=== PATIENT | male | born 1975 | race Caucasian/White ===

== ENCOUNTER 2016-12-12 17:10 | Inpatient (IN) | payer BC ==
--- NOTE | ~2016-12-12 | DS ---
Discharge Summary [facility] [address] [place]. [address] NAME: RUTHIE QUINTANA PAGE : 75 STATUS : DIS IN PAT#: [id number] AGE: 41 ADM/REG DATE : 12/12/16 MR#: [id number] REPORT SERV DATE: 12/25/16 DICTATED BY: MILADYS CRAVEN III DATE: 12/24/16 REPORT STATUS : Draft TRANSCRIBED BY: FANY DATE: 12/24/16 Data Collection from hospitalization DISCHARGE DIAGNOSES: 1. Relapsed acute myeloblastic leukemia. 2. Anemia. 3. Asthma. CONSULTATIONS: None. PROCEDURES PERFORMED: None. MEDICATIONS: Zovirax 400 mg twice a day, Diflucan 400 mg daily, Dulera two puffs via inhaler daily as needed, Cortisporin Otic one drop four times a day, Bactrim DS one tablet three times a week, herbal supplements as instructed, and MD Monique/lidocaine 5 mL four times a day as needed. CONDITION AT DISCHARGE: Stable. DISPOSITION: The patient was discharged home on a regular diet with activities as instructed. He would follow up with me on 12/19/2016. HOSPITAL COURSE: This is a 41-year-old man who has relapsed acute myeloblastic leukemia. He has acute myeloid leukemia in remission. He continued to feel great. He had no new problems. He continues to work out regularly and says that he had an excellent energy level. The patient decided to undergo for reinduction with plans to proceed with transplant. He was admitted to the hospital at this time for further evaluation and treatment. Upon admission, fluconazole and Bactrim were started. He was going to begin FLAG-SINGH. On 12/14/2016, he was receiving day two of FLAG-SINGH. He had tolerated this well so far. No transfusion was needed for pancytopenia. Bactrim and proton pump inhibitor were be continued. He said he felt good. He had no nausea. He had no bleeding. White count was 2.3. On 12/15/2016, he had no new complaints. He had no problems. FLAG-SINGH continued as well as fluconazole and Bactrim. Discharge planning was performed. He continued to do well. On 12/17/2016, he had no new complaints. He was alert and cooperative. His lungs were clear. Discharge instructions were given. Due to his improved and stable condition, he was discharged home with the above-stated instructions. Information collected by: Felicia Kaba I submit the above information as my discharge summary. ELIOT/FANY Discharge Summary [facility] [address] [place]. [address] NAME: RUTHIE QUINTANA PAGE : 75 STATUS : DIS IN PAT#: [id number] AGE: 41 ADM/REG DATE : 12/12/16 MR#: [id number] REPORT SERV DATE: 12/25/16 DICTATED BY: MILADYS CRAVEN III DATE: 12/24/16 REPORT STATUS : Draft TRANSCRIBED BY: FANY DATE: 12/24/16 Miladys Craven III, M.D. / [id number] CC: Ayden Powers III, VICKY L
[~2016-12-12 17:10] MED LIST: BEN25 PO; DULERA 100 MCG/13 GM INH; DULERA 200 MCG/13 GM INH; FLUCON2 PO; LEVAQUIN750 MG PO; SELENIUM PO; VITAMIN D1000 UNI1 PO; ZOVIRAX400 MG PO
[2016-12-12] MEDS ORDERED: DULERA 100 MCG/13 GM INH (18:36)
[2016-12-12] MEDS ORDERED: HERBAL SUPPL (18:37)
[2016-12-12 18:53] LABS: HEMOGLOBIN 12.9 g/dL (13.6-17.8); MEAN CORPUSCULAR HEMOGLOB 32.3 pg (26.0-34.0); MEAN PLATELET VOLUME 8.6 fL (9.2-13.0); PLATELET COUNT 92 10/3/uL (150-400)
[2016-12-12 18:56] LABS: HEMATOCRIT 37.8 % (40.0-51.0); MANUAL DIFF YES %; MEAN CORPUS HGB CONC 34.1 g/dL (32.0-36.0); MEAN CORPUSCULAR VOLUME 94.5 fL (80-100); WHITE BLOOD CELLS 1.8 10/3/uL (4.5-10.5)
[2016-12-12 19:22] LABS: ALBUMIN 4.2 G/DL (3.5-5.0); BUN (BLOOD UREA NITROGEN) 14 MG/DL (6-23); CALCIUM, SERUM 8.8 MG/DL (8.5-10.4); CHLORIDE, SERUM 107 MMOL/L (96-112); CO2 (CARBON DIOXIDE) 26 MMOL/L (24-34); CREATININE 0.82 MG/DL (0.70-1.30); GFR AFRICAN AMERICAN 127 ML/MIN (>=60); GFR NON AFRICAN AMERICAN 110 ML/MIN (>=60); GLUCOSE, SERUM 122 MG/DL (60-99); SGOT(AST) 17 U/L (5-40); SGPT(ALT) 34 U/L (5-65); SODIUM, SERUM 141 MMOL/L (135-148); TOTAL PROTEIN 6.4 G/DL (6.0-8.5)
[2016-12-12 19:23] LABS: A/G RATIO 1.9 (0.7-1.9); ALKALINE PHOSPHATASE 54 U/L (45-117); GLOBULIN 2.2 G/DL (2.5-4.1); TOTAL BILIRUBIN 0.2 MG/DL (0-1.2)
[2016-12-12 20:23] LABS: BAND NEUTROPHILS 1 %; EOSINOPHILS 8 %; EOSINOPHILS ABSOLUTE (CALC) 0.14 10/3/uL (0.0-0.53); LYMPHOCYTES 40 %; LYMPHOCYTES ABSOLUTE (CALC) 0.72 10/3/uL (0.67-4.30); MONOCYTES 2 %; MONOCYTES ABSOLUTE (CALC) 0.04 10/3/uL (0.21-1.20); SEGMENTED NEUTROPHIL (0) 49 %; TOTAL NUCLEATED CELLS 100
[2016-12-12 20:37] LABS: PLATELET ESTIMATE DEC (ADEQUATE)
[2016-12-12 20:38] LABS: RBC MORPHOLOGY NORM (NORMAL)
[2016-12-13 05:42] LABS: HEMOGLOBIN 13.7 g/dL (13.6-17.8); MEAN CORPUS HGB CONC 34.3 g/dL (32.0-36.0); MEAN CORPUSCULAR VOLUME 96.4 fL (80-100); PLATELET COUNT 97 10/3/uL (150-400); RED CELL COUNT 4.15 10/6/uL (4.7-6.1)
[2016-12-13 05:44] LABS: MANUAL DIFF YES %; WHITE BLOOD CELLS 1.8 10/3/uL (4.5-10.5)
[2016-12-13 05:50] LABS: CALCIUM, SERUM 8.9 MG/DL (8.5-10.4); CHLORIDE, SERUM 111 MMOL/L (96-112); CO2 (CARBON DIOXIDE) 27 MMOL/L (24-34); CREATININE 0.93 MG/DL (0.70-1.30); GFR AFRICAN AMERICAN 118 ML/MIN (>=60); GFR NON AFRICAN AMERICAN 102 ML/MIN (>=60); POTASSIUM, SERUM 4.3 MMOL/L (3.5-5.3); SODIUM, SERUM 145 MMOL/L (135-148)
[2016-12-13 05:51] LABS: BUN (BLOOD UREA NITROGEN) 19 MG/DL (6-23); GLUCOSE, SERUM 91 MG/DL (60-99)
[2016-12-13 06:25] LABS: BAND NEUTROPHILS 2 %; EOSINOPHILS 10 %; EOSINOPHILS ABSOLUTE (CALC) 0.18 10/3/uL (0.0-0.53); LYMPHOCYTES 38 %; LYMPHOCYTES ABSOLUTE (CALC) 0.68 10/3/uL (0.67-4.30); MONOCYTES 4 %; MONOCYTES ABSOLUTE (CALC) 0.07 10/3/uL (0.21-1.20); NEUTROPHILS ABSOLUTE (CALC) 0.86 10/3/uL (2.02-8.40); PLATELET ESTIMATE DEC (ADEQUATE); RBC MORPHOLOGY NORM (NORMAL); SEGMENTED NEUTROPHIL (0) 46 %; TOTAL NUCLEATED CELLS 100
[2016-12-14 06:41] LABS: BASOPHILS 0 %; EOSINOPHILS 0.9 %; EOSINOPHILS ABSOLUTE 0.02 10/3/uL (0.0-0.53); HEMATOCRIT 39.8 % (40.0-51.0); HEMOGLOBIN 14.1 g/dL (13.6-17.8); LYMPHOCYTES 14.8 %; LYMPHOCYTES ABSOLUTE 0.34 10/3/uL (0.67-4.30); MANUAL DIFF NO %; MEAN CORPUS HGB CONC 35.4 g/dL (32.0-36.0); MEAN CORPUSCULAR HEMOGLOB 33.7 pg (26.0-34.0); MEAN PLATELET VOLUME 9.1 fL (9.2-13.0); MONOCYTES 0.4 %; MONOCYTES ABSOLUTE 0.01 10/3/uL (0.21-1.20); NEUTROPHILS 83.9 %; NEUTROPHILS ABSOLUTE 1.93 10/3/uL (2.02-8.40); PLATELET COUNT 94 10/3/uL (150-400); RBC DISTRIBUTION WIDTH 13.5 % (12.0-16.0); RED CELL COUNT 4.19 10/6/uL (4.7-6.1); WHITE BLOOD CELLS 2.3 10/3/uL (4.5-10.5)
[2016-12-14 06:53] LABS: BUN (BLOOD UREA NITROGEN) 9 MG/DL (6-23); CALCIUM, SERUM 8.5 MG/DL (8.5-10.4); CHLORIDE, SERUM 108 MMOL/L (96-112); CO2 (CARBON DIOXIDE) 24 MMOL/L (24-34); CREATININE 0.73 MG/DL (0.70-1.30); GFR AFRICAN AMERICAN 134 ML/MIN (>=60); GFR NON AFRICAN AMERICAN 115 ML/MIN (>=60); GLUCOSE, SERUM 119 MG/DL (60-99); POTASSIUM, SERUM 3.9 MMOL/L (3.5-5.3); SODIUM, SERUM 142 MMOL/L (135-148)
[2016-12-15 05:13] LABS: BASOPHILS 0 %; EOSINOPHILS 0.4 %; EOSINOPHILS ABSOLUTE 0.01 10/3/uL (0.0-0.53); HEMATOCRIT 36.6 % (40.0-51.0); HEMOGLOBIN 12.8 g/dL (13.6-17.8); LYMPHOCYTES ABSOLUTE 0.15 10/3/uL (0.67-4.30); MEAN CORPUSCULAR HEMOGLOB 32.9 pg (26.0-34.0); MEAN CORPUSCULAR VOLUME 94.1 fL (80-100); MEAN PLATELET VOLUME 9.1 fL (9.2-13.0); MONOCYTES 0.4 %; MONOCYTES ABSOLUTE 0.01 10/3/uL (0.21-1.20); NEUTROPHILS 93.2 %; NEUTROPHILS ABSOLUTE 2.33 10/3/uL (2.02-8.40); PLATELET COUNT 75 10/3/uL (150-400); RBC DISTRIBUTION WIDTH 14.3 % (12.0-16.0); RED CELL COUNT 3.89 10/6/uL (4.7-6.1); WHITE BLOOD CELLS 2.5 10/3/uL (4.5-10.5)
[2016-12-15 05:16] LABS: MANUAL DIFF NO %
[2016-12-15 05:21] LABS: CALCIUM, SERUM 8.3 MG/DL (8.5-10.4); CHLORIDE, SERUM 107 MMOL/L (96-112); CO2 (CARBON DIOXIDE) 27 MMOL/L (24-34); CREATININE 0.76 MG/DL (0.70-1.30); GFR AFRICAN AMERICAN 131 ML/MIN (>=60); GFR NON AFRICAN AMERICAN 113 ML/MIN (>=60); GLUCOSE, SERUM 115 MG/DL (60-99); POTASSIUM, SERUM 4.4 MMOL/L (3.5-5.3); SODIUM, SERUM 143 MMOL/L (135-148)
[2016-12-15 05:22] LABS: BUN (BLOOD UREA NITROGEN) 16 MG/DL (6-23)
[2016-12-15 06:00] LABS: PLATELET ESTIMATE DEC (ADEQUATE)
[2016-12-15 06:01] LABS: RBC MORPHOLOGY NORM (NORMAL)
[2016-12-16 04:34] LABS: BASOPHILS 0 %; EOSINOPHILS 0 %; HEMATOCRIT 34.7 % (40.0-51.0); HEMOGLOBIN 12.2 g/dL (13.6-17.8); IMMATURE GRANULOCYTES 0.5 %; IMMATURE GRANULOCYTES ABSOLUTE 0.01 10/3/uL (0.0-0.11); LYMPHOCYTES ABSOLUTE 0.13 10/3/uL (0.67-4.30); MEAN CORPUS HGB CONC 35.2 g/dL (32.0-36.0); MEAN CORPUSCULAR HEMOGLOB 33.2 pg (26.0-34.0); MEAN CORPUSCULAR VOLUME 94.6 fL (80-100); MEAN PLATELET VOLUME 9.2 fL (9.2-13.0); MONOCYTES 0 %; NEUTROPHILS 93.5 %; NEUTROPHILS ABSOLUTE 2.01 10/3/uL (2.02-8.40); PLATELET COUNT 68 10/3/uL (150-400); RBC DISTRIBUTION WIDTH 13.7 % (12.0-16.0); RED CELL COUNT 3.67 10/6/uL (4.7-6.1)
[2016-12-16 04:37] LABS: MANUAL DIFF NO %; WHITE BLOOD CELLS 2.2 10/3/uL (4.5-10.5)
[2016-12-16 04:46] LABS: BUN (BLOOD UREA NITROGEN) 16 MG/DL (6-23); CALCIUM, SERUM 8.2 MG/DL (8.5-10.4); CHLORIDE, SERUM 108 MMOL/L (96-112); CO2 (CARBON DIOXIDE) 25 MMOL/L (24-34); CREATININE 0.74 MG/DL (0.70-1.30); GFR AFRICAN AMERICAN 133 ML/MIN (>=60); GFR NON AFRICAN AMERICAN 115 ML/MIN (>=60); GLUCOSE, SERUM 109 MG/DL (60-99); POTASSIUM, SERUM 3.9 MMOL/L (3.5-5.3); SODIUM, SERUM 142 MMOL/L (135-148)
[2016-12-16 04:57] LABS: PLATELET ESTIMATE DEC (ADEQUATE); RBC MORPHOLOGY NORM (NORMAL)
[2016-12-17 06:33] LABS: BASOPHILS 0 %; EOSINOPHILS 0 %; HEMATOCRIT 35.6 % (40.0-51.0); HEMOGLOBIN 12.7 g/dL (13.6-17.8); LYMPHOCYTES 6.4 %; LYMPHOCYTES ABSOLUTE 0.13 10/3/uL (0.67-4.30); MEAN CORPUS HGB CONC 35.7 g/dL (32.0-36.0); MEAN CORPUSCULAR HEMOGLOB 33.6 pg (26.0-34.0); MEAN CORPUSCULAR VOLUME 94.2 fL (80-100); MEAN PLATELET VOLUME 9.3 fL (9.2-13.0); MONOCYTES 0 %; NEUTROPHILS 93.6 %; NEUTROPHILS ABSOLUTE 1.89 10/3/uL (2.02-8.40); PLATELET COUNT 52 10/3/uL (150-400); RBC DISTRIBUTION WIDTH 13.6 % (12.0-16.0); RED CELL COUNT 3.78 10/6/uL (4.7-6.1)
[2016-12-17 06:34] LABS: MANUAL DIFF NO %
[2016-12-17 06:45] LABS: BUN (BLOOD UREA NITROGEN) 14 MG/DL (6-23); CALCIUM, SERUM 8.7 MG/DL (8.5-10.4); CHLORIDE, SERUM 106 MMOL/L (96-112); CO2 (CARBON DIOXIDE) 26 MMOL/L (24-34); CREATININE 0.69 MG/DL (0.70-1.30); GFR AFRICAN AMERICAN 137 ML/MIN (>=60); GFR NON AFRICAN AMERICAN 118 ML/MIN (>=60); GLUCOSE, SERUM 99 MG/DL (60-99); POTASSIUM, SERUM 3.9 MMOL/L (3.5-5.3); SODIUM, SERUM 143 MMOL/L (135-148)
[2016-12-17 06:58] LABS: BAND NEUTROPHILS 5 %; EOSINOPHILS 1 %; EOSINOPHILS ABSOLUTE (CALC) 0.02 10/3/uL (0.0-0.53); LYMPHOCYTES 8 %; LYMPHOCYTES ABSOLUTE (CALC) 0.16 10/3/uL (0.67-4.30); MONOCYTES 1 %; MONOCYTES ABSOLUTE (CALC) 0.02 10/3/uL (0.21-1.20); PLATELET ESTIMATE DEC (ADEQUATE); RBC MORPHOLOGY NORM (NORMAL); SEGMENTED NEUTROPHIL (0) 85 %; TOTAL NUCLEATED CELLS 100
[2016-12-17] MEDS ORDERED: [UNRECOGNIZED DRUG - CODE] PO (10:39)
[2016-12-17] MEDS ORDERED: CORTOTSOL OT (10:40)
[2016-12-17] MEDS ORDERED: ZOVIRAX400 MG PO (10:41)
[2016-12-17] MEDS ORDERED: BACDS PO (10:43)
[2016-12-17] MEDS ORDERED: [UNRECOGNIZED DRUG - REMARK] PO (10:46)
== END 2016-12-17 19:08 | disposition home or self-care (01) | DRG 847 ==
LOC: 4EA 17:10
PROVIDERS: Internal Medicine
PROC: 3E03305 Introduction of Other Antineoplastic into Peripheral Vein, Percutaneous Approach (ICD-10-PCS; principal; 2016-12-12)
PROC: 02HV33Z Insertion of Infusion Device into Superior Vena Cava, Percutaneous Approach (ICD-10-PCS; 2016-12-13)
PROC: 4A02X4A Measurement of Cardiac Electrical Activity, Guidance, External Approach (ICD-10-PCS; 2016-12-13)
DX: Z51.11 Encounter for antineoplastic chemotherapy (principal); C92.Z2 Other myeloid leukemia, in relapse; D61.818 Other pancytopenia; K12.30 Oral mucositis (ulcerative), unspecified
CPT/HCPCS: 36569; 80048; 80053; 85025; A9270-GY; C1751; J2405; J9100; J9185; J9211